=== PATIENT | male | born 1995 | race Caucasian/White ===

== ENCOUNTER 2018-11-06 00:15 | Observation (INO) ==
[2018-11-06] MEDS ORDERED: LR 1,000 ML IV ONE ×3 (00:51→00:52)
[2018-11-06] MEDS ORDERED: LEVAQUIN 500 MG/D5W 500 MG/100 ML IVPB IV ONE (00:54)
[2018-11-06] MEDS ORDERED: TYLENOL PO ONE (01:26)
[2018-11-06 01:36] LABS: BASO# 0.02 X1000 (0.0-0.2); BASO% 0.2 % (0.0-0.8); EOS# 0.07 X1000 (0.0-0.7); EOS% 0.6 % (0.0-10.0); HEMATOCRIT 42.7 % (42.0-52.0); HEMOGLOBIN 14.1 g/dL (14.0-18.0); IMM GRAN# 0.02 X1000 (0.0-0.04); IMM GRAN% 0.2 % (0.0-0.5); LYMPH# 1.43 X1000 (1.2-3.4); LYMPH% 12.1 % (20.5-51.1); MCV 84.7 FL (81-99); MONO# 1.01 X1000 (0.11-0.59); MONO% 8.5 % (1.7-9.3); NEUT# 9.29 X1000 (1.4-6.5); NEUT% 78.4 % (42.2-75.2); PLT 285 X1000 (130-400); RBC 5.04 XMIL (4.7-6.1); RDW 13.6 % (11.5-14.5); WBC 11.84 X1000 (4.8-10.8)
[2018-11-06 01:39] LABS: AGAP 16; ALB/GLOB RATIO 1.5; ALBUMIN 4.7 g/dL (3.5-5.0); ALKALINE PHOSPHATASE 88 U/L (32-122); BUN 13 mg/dL (8-22); CHLORIDE 102 mmol/L (98-107); CK PROFILE 105 U/L (24-204); COSMO 282; CREATININE 0.7 mg/dL (0.7-1.2); ESTIMATED GFR > 60; GLUCOSE 115 mg/dL (70-104); GOT 14 U/L (10-34); GPT 17 U/L (10-44); POTASSIUM 3.8 mmol/L (3.5-5.1); SODIUM 141 mmol/L (136-145); TCO2 23 mmol/L (25-35); TOTAL BILIRUBIN 0.34 mg/dL (0.20-1.00); TOTAL PROTEIN 7.8 g/dL (6.3-8.3)
[2018-11-06 01:55] LABS: URINE SOURCE CLEAN CATCH
[2018-11-06 01:59] LABS: BILIRUBIN URINE NEGATIVE (NEGATIVE); BLOOD URINE NEGATIVE (NEGATIVE); COLOR YELLOW; GLUCOSE URINE NEGATIVE (NEGATIVE); KETONE URINE NEGATIVE (NEGATIVE); LEUKOCYTES URINE NEGATIVE (NEGATIVE); NITRITE URINE NEGATIVE (NEGATIVE); PH URINE 6.5; PROTEIN URINE TRACE mg/dL (NEGATIVE); SP GRAVITY URINE 1.024; TURBIDITY URINE CLEAR (CLEAR); UROBILINOGEN URINE NORMAL (NORMAL)
[2018-11-06 02:00] LABS: UR EPITHELIAL CELLS <10 /HPF (<10); URINE BACTERIA NEGATIVE /HPF; URINE RBC <10 /HPF (<10); URINE WBC <10 /HPF (<10)
[2018-11-06 02:02] LABS: INR 1.09
[2018-11-06 02:03] LABS: PTT 35.2 Seconds (22.3-41.8)
[2018-11-06] MEDS ORDERED: ZOFRAN IV PRN (07:20)
[2018-11-06] MEDS ORDERED: TYLENOL PO PRN (07:20)
[2018-11-06] MEDS ORDERED: LEVAQUIN 500 MG/D5W 500 MG/100 ML IVPB IV SCH (07:20)
--- NOTE | 2018-11-06 07:29 | HISTORY AND PHYSICAL ---
PRIMARY CARE PHYSICIAN: None. CHIEF COMPLAINT: Fever. HISTORY OF PRESENTING ILLNESS: A 23-year-old male without any significant past medical history who had presented to the emergency department complaining of fever and not feeling well. The patient states that it has been going on for the past several days. He apparently was in the ER earlier in the morning and apparently had a CAT scan which did show possible atypical infectious process and was sent home. However, he states that he did not feel well and returned back to the emergency department. He was evaluated in the ED. He continued to have fever and it was thought that possibly he had pneumonia. Subsequently, he will need admission for further management. At the time of my examination, he denied any headache, visual changes, nausea, vomiting, diarrhea, hemoptysis, melena, chest pain, or any weight changes but complained of a fever and not feeling well. PAST MEDICAL HISTORY: None. PAST SURGICAL HISTORY: None. ALLERGIES: Omnicef. CURRENT MEDICATIONS: None. SOCIAL HISTORY: No history of smoking, alcohol, or illicit drug use. FAMILY HISTORY: No history of coronary artery disease. REVIEW OF SYSTEMS: Fourteen point review of systems as listed as in the HPI. Other systems negative. PHYSICAL EXAMINATION: GENERAL: Cooperative, friendly male. He is resting more comfortably now. VITAL SIGNS: Temperature of 102.9 degrees, pulse 142, respirations 18, blood pressure 121/68. HEENT: Atraumatic, normocephalic. Extraocular movements intact. PERRLA. NECK: No masses. CHEST: Right lower lobe rales. CARDIOVASCULAR: Regular rate and rhythm. ABDOMEN: Soft. Positive bowel sounds. EXTREMITIES: No edema. NEUROLOGIC: He is awake, alert, oriented x3. : No bladder distention. SKIN: Warm. LABORATORIES AND STUDIES: WBCs 11.84, hemoglobin 14.1, hematocrit 42.7, platelets are 285,000. Sodium 141, potassium 3.8, chloride 102, CO2 is 23, BUN is 13, creatinine is 0.7, glucose is 115. The patient apparently had a CT of the abdomen and pelvis earlier which did show some large nodules, possibly representing an atypical infectious process. ASSESSMENT: This is a 23-year-old male without any significant past medical history who presented to the emergency department with a several day history of having fever. He was evaluated in the emergency department, suspected possibly to have pneumonia. Subsequently, he will need admission for further management. 1. Suspected atypical pneumonia. 2. Fever. PLAN: 1. We will admit the patient to the medical floor with telemetry. 2. We will check blood cultures. Start patient on IV antibiotics. 3. Continue with other supportive care and analgesics. 4. Continue with gentle hydration. 5. We will continue to follow and reassess, and make further recommendations based on patient's clinical course. cc: Catracho Maloney MD
[2018-11-06] MEDS ORDERED: AZACTAM 1 GM in NS 50 ML IV SCH (07:30)
[2018-11-06] MEDS: NS 1,000 ML IV SCH ×2 (08:05→16:05)
--- NOTE | 2018-11-06 08:54 | Diag Imaging Result Doc PS360 ---
EXAM: CHEST-PORTABLE INDICATION: dyspnea TECHNIQUE: One view COMPARISON: 12/10/2017 FINDINGS: There is a vague nodular opacity in the right midlung zone. This is probably a part of the same process that was seen on a recent CT abdomen and pelvis at the lung bases. The smaller basilar nodules seen on CT cannot be identified on this AP plain radiograph. There is no discrete pleural fluid collection or pneumothorax. The cardiomediastinal silhouette and central vasculature are grossly unremarkable. IMPRESSION: Vague nodular density in the right midlung zone. Please see above discussion. Electronically signed by Linus Cunningham 11/06/2018 8:52 AM
--- NOTE | 2018-11-06 14:28 | INFECTIOUS DISEASE CONSULT REP ---
DATE: 11/06/2018 CONCLUSION: The patient is admitted to the hospital with a bilateral nodular pneumonia, the exact etiology of which is uncertain to me. I think it definitely is an infection rather than a malignancy, either primary or secondary due to metastatic disease. ALLERGIES: The patient is allergic to Omnicef. RECOMMENDATIONS: I agree with treating the patient with Levaquin. I think the aztreonam can be discontinued. I think, furthermore, if the patient remains afebrile and his cough is subsiding, he could be discharged home on Levaquin and I can follow him in the office. I have ordered antibodies for mycoplasma and chlamydia. DISCUSSION: The patient says approximately 4 days ago, he developed right-sided pleuritic chest pain. He had fever. The patient coughed and produced a very small amount of green-colored sputum which he is not producing at all now. He does not remember being exposed to somebody who was ill. He has not been to the [facility]. Laboratory studies thus far show a CBC with a white count of 11,840, hemoglobin is 14.1, platelet count is 285,000. Creatinine is 0.7. GFR is greater than 60. Liver function studies are normal. Urinalysis shows no white cells or bacteria. The patient's CT scan of the chest shows bilateral nodular infiltrates. Blood cultures are pending. Swab for influenza was negative. PAST MEDICAL HISTORY/REVIEW OF SYSTEMS: Eyes and Ears: He does not have any problem hearing or seeing. Neck: No pain with movement. Respiratory: See present illness. Cardiac: No chest pain or palpitations. GI: No nausea, vomiting, or diarrhea. : No dysuria or flank pain. Bones, Joints, Muscles: No swollen joints or myalgias. Endocrine: Patient does not have diabetes or thyroid disease. Integument: No rash. PREVIOUS HOSPITALIZATIONS AND OPERATIONS: None. MEDICAL DISEASES: Obesity. Negative for diabetes. INFECTIOUS DISEASE HISTORY: Positive for sinusitis and bronchitis. FAMILY HISTORY: Positive for diabetes mellitus and cancer. SOCIAL HISTORY: [place] He rarely drinks alcoholic beverages. He is allergic to Omnicef. He works at the [employer]. He has a dog as a pet. He lives with his grandmother. MEDICATIONS: The patient does not have any normal home medications. PHYSICAL EXAMINATION: Vital Signs: Temperature is 98.6 degrees, pulse 117, respirations 16, blood pressure 154/89. The patient weighs 271 pounds. General: This is an obese, young male. He is in no acute distress. Head, Eyes, Ears, Nose, and Throat: He can hear my spoken words and see near objects. He does not have any white patches on his tongue. There is no drainage from the nose or ears. Sinuses are not tender. Neck: No pain with movement. Lungs: Clear to auscultation. Cardiovascular: Regular heart rate. Abdomen: Soft and nontender. Neurologic: The patient is awake. He can move his extremities. There is no tremor. Integument: No rash. Lymph Nodes: No lymphadenopathy. Thank you for the consult. cc: Mukesh Myrick MD
--- NOTE | 2018-11-06 20:14 | Diag Imaging Result Doc PS360 ---
EXAM: CT THORAX W/O CONTRAST INDICATION: pneumonia/lymphadenopathy TECHNIQUE: This exam was performed using automated exposure control, adjustment of mA or kV according to patient size, and/or use of iterative reconstruction technique. COMPARISON: No prior dedicated chest CT is available for comparison. FINDINGS: There are innumerable nodules seen throughout both lungs that are similar to the ones seen at the lung bases on a CT of the abdomen and pelvis performed yesterday. The largest nodules were out of the [id number] on yesterday's study and are at the superior aspect of the right lower lobe and the anterior segment of the right upper lobe measuring up to 3 cm axially. Since yesterday's study, several of the nodules at the lung bases have coalesced into small but dense consolidations, more prominent on the right. This rapid coalescing of these nodules favors an atypical infectious process or inflammatory process such as sarcoidosis. Nonetheless, follow-up after treatment should be considered to assure resolution. There is no pleural fluid collection and there is no pneumothorax. There is no cardiomegaly. There is mediastinal and hilar lymphadenopathy with multiple mild to moderately enlarged nodes that are nonspecific but probably related to the same process that is causing the nodules. The bony structures of the thorax are unremarkable. IMPRESSION: 1.Innumerable nodules of varying sizes scattered throughout both lungs as described above with coalescence of several of the nodules seen at the lung bases on yesterday's abdominal CT. Please see above discussion. 2.Mediastinal and hilar lymphadenopathy. Electronically signed by Linus Cunningham 11/06/2018 8:12 PM
[2018-11-07] MEDS: NS 1,000 ML IV SCH (01:38)
[2018-11-07] MEDS ORDERED: LEVAQUIN 500 MG/D5W 500 MG/100 ML IVPB IV SCH (01:45)
[2018-11-07] MEDS ORDERED: OFIRMEV 1000 MG/ISOTONIC SOLN 1,000 MG/100 ML BOTTLE IV ONE (02:11)
[2018-11-07] MEDS: ROBITUSSIN-AC PO PRN ×2 (02:29→08:48)
[2018-11-07 07:29] LABS: BASO# 0.03 X1000 (0.0-0.2); BASO% 0.3 % (0.0-0.8); EOS# 0.11 X1000 (0.0-0.7); HEMATOCRIT 39.8 % (42.0-52.0); HEMOGLOBIN 13.2 g/dL (14.0-18.0); IMM GRAN# 0.05 X1000 (0.0-0.04); IMM GRAN% 0.5 % (0.0-0.5); LYMPH# 1.63 X1000 (1.2-3.4); LYMPH% 14.9 % (20.5-51.1); MCH 28.6 PG (27-31); MCHC 33.2 g/dL (33-37); MCV 86.1 FL (81-99); MONO# 1.15 X1000 (0.11-0.59); MONO% 10.5 % (1.7-9.3); MPV 9.5 FL (7.4-10.4); NEUT# 7.96 X1000 (1.4-6.5); NEUT% 72.8 % (42.2-75.2); PLT 249 X1000 (130-400); RBC 4.62 XMIL (4.7-6.1); RDW 13.6 % (11.5-14.5); WBC 10.93 X1000 (4.8-10.8)
[2018-11-07 07:39] LABS: AGAP 11; BUN 7 mg/dL (8-22); CALCIUM 8.6 mg/dL (8.8-10.2); CHLORIDE 104 mmol/L (98-107); COSMO 274; CREATININE 0.7 mg/dL (0.7-1.2); ESTIMATED GFR > 60; GLUCOSE 98 mg/dL (70-104); POTASSIUM 4.2 mmol/L (3.5-5.1); SODIUM 138 mmol/L (136-145); TCO2 23 mmol/L (25-35)
[2018-11-07] MEDS ORDERED: TYLENOL PO PRN (08:30)
--- NOTE | 2018-11-07 08:42 | HEMO/ONC CONSULTATION ---
DATE: 11/07/2018 CHIEF COMPLAINT: We are being consulted for further evaluation and management of lymphadenopathy and pulmonary nodules. HISTORY OF PRESENT ILLNESS: Mr. Tiana Castorena is a 23-year-old male with any significant past medical history that came to the emergency department complaining of fever, not feeling well over the past few days. The patient was in the emergency department at one point in time and still had complaints and was sent home and came back once again to the emergency department complaining that he is feeling worse. He was admitted at that time for possible pneumonia. The patient denies any headaches, visual changes, nausea, vomiting, diarrhea, chest pain. PAST MEDICAL HISTORY: None.. PAST SURGICAL HISTORY: None. SOCIAL HISTORY: Denies any tobacco, alcohol or illicit drug use. FAMILY HISTORY: Noncontributory. ALLERGIES: Omnicef. HOME MEDICATIONS: None. REVIEW OF SYSTEMS: Negative other than in the HPI. PHYSICAL EXAM: Vital Signs: Temperature 99.9 degrees, heart rate 113, respiratory rate 18, blood pressure 129/74, saturation 98% on room air. General: Patient is awake, lying in bed, no acute distress noted. HEENT: Anicteric. Mucous membranes moist. Neck: Supple. Trachea midline. No JVD. No palpable lymphadenopathy. Chest: Bilateral breath sounds diminished bilaterally. Cardiovascular: S1, S2. Regular rate and rhythm. Abdomen: Soft, nontender. Bowel sounds present in all quadrants. No hepatosplenomegaly noted. Skin: Warm, dry and intact. No petechiae. No clubbing or cyanosis. Neurologic: Alert and oriented x3. No focal deficits noted. LABORATORY DATA: White count 10.93, hemoglobin 13.2, hematocrit 39.8, platelets are 249. Potassium 4.2, BUN 7, creatinine 0.7. Radiology results CT chest shows an number nodules of varying sizes scattered in both lungs. Also has mediastinal lymphadenopathy. ASSESSMENT/PLAN: 1. Lung nodules: The lab work has been ordered. Further evaluation pending. We will make further recommendations based on further evaluation. 2. Pneumonia: Continue recommendations per pulmonology and infectious Disease. 3. Fever: Continue antibiotics as ordered. Plan of care discussed with Dr. Cartwright. Dictated by MARY ELLEN Lazo for Kamron Cartwright MD Patient seen and examined. Admitted with fevers, bilateral lung nodules and mediastinal lymphadenopathy. Dr. Mace and Ramez are consulted. Infectious/inflammatory disorder suspected. Proceed with current management. If malignancy is noted, we will take over management. I will continue to follow with you. Thank you Kamron Cartwright M.D. cc: MARY ELLEN Lazo MD [facility]
[2018-11-07] MEDS ORDERED: MOTRIN PO ONE (11:04)
[2018-11-07] MEDS ORDERED: MOTRIN PO PRN (12:07)
[2018-11-07] MEDS ORDERED: NS 1,000 ML IV SCH (12:15)
[2018-11-07] MEDS ORDERED: LOVENOX SUBQ SCH (12:15)
--- NOTE | 2018-11-07 12:44 | PROGRESS NOTE ---
DATE: 11/07/2018 SUBJECTIVE: The patient has been febrile all morning. He states that he feels a little bit better despite having a fever. OBJECTIVE: Vital Signs: T-max 100.3 degrees, blood pressure 129/74, heart rate 113, respirations 19 and O2 saturations 97% on room air. General: This is a young male lying in bed in no acute distress. HEENT: Head normocephalic and atraumatic. Heart: S1, S2 normal. Tachycardic. Lungs: Equal air entry bilaterally. No wheezing. No rales. Abdomen: Positive bowel sounds. Soft, nontender, and nondistended. Extremities: No edema. No cyanosis. Neurologic: The patient is alert and oriented x4. No focal neurologic deficits noted. LABORATORY: White blood cell count 10, hemoglobin 13, hematocrit 39, and platelets 249,000. Sodium 138, potassium 4.2, chloride 104, CO2 23, BUN 7, creatinine 0.7, glucose 98, and calcium 8.6. ASSESSMENT AND PLAN: 1. Multiple pulmonary nodules with hilar and mediastinal lymphadenopathy. The workup is in progress for possible infectious etiology. Both ID and Pulmonary are following. The patient is currently on antibiotic therapy. Oncology has also been consulted. 2. Pneumonia. Continue with IV antibiotic therapy as directed by Dr. Myrick. 3. Deep vein thrombosis prophylaxis. We will start the patient on Lovenox. cc: Nenita Lopez MD
[2018-11-07 14:00] VITALS: BP 130/62
--- NOTE | 2018-11-07 18:53 | PULMONOLOGY CONSULTATION ---
DATE: 11/07/2018 REASON FOR CONSULTATION: Pulmonary nodules and lymphadenopathy. HISTORY OF PRESENT ILLNESS: Mr. Montiel is a 23-year-old white male with no active medical problems who reports he was feeling well until 11/05/2014 when he developed pain in his right side, which was worse with bending and twisting. In hind site, he did report a cough which preceded this for 2 to 3 days. He presented to the emergency room after an Urgent Care told him he had a positive Ryan sign and he had his gallbladder evaluated. CT scan of the abdomen and pelvis was performed which revealed new bibasilar nodules, which were not present on prior CT scan of the abdomen 12/11/2017 which was performed for abdominal pain, nausea and vomiting. The patient was discharged with outpatient follow-up arranged. The patient returned to the emergency room the following day with increased cough, increased pleuritic pain, and fevers. CT scan of the thorax was ordered, which reveals multiple bilateral nodules, most of which are not discrete but have an inflammatory process also present. The nodules in the lung bases have now coalesced into areas of consolidation. The patient was admitted to the hospital, and blood cultures were obtained. Influenza screen was negative. Pulmonary, Infectious Disease and Oncology have been consulted. 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 He reports occasionally a bird will roost in the warehouse but not routinely. 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 He does report they have pallets that frequently come in and have mold on them. He denies hunting. He denies recent landscaping or movement of dirt. He denies recent travel. His grandmother has a dog. The dog does urinate and defecate in the house that he is living in. There is no known mold damage within the house in which he lives. He does not nelson. He is not aware of being exposed to a sick contact. He does report some pruritus, but this has resolved. He denies groin tenderness or testicular nodules or masses. His fever has been as high as 102.9 degrees, but his temperature curve appears to be declining. PAST MEDICAL HISTORY/PROBLEM LIST: Prior episode of pleurisy by his report. No prior surgeries. No chronic medications. SOCIAL HISTORY: The patient has vaped in the past. Occasional alcohol use. No active tobacco use. FAMILY HISTORY: Noncontributory to current presentation. REVIEW OF SYSTEMS: As noted in the HPI. PHYSICAL EXAMINATION: General: Reveals a healthy-appearing obese white male resting comfortably and in no distress. Vital Signs: BP 130/62, heart rate 110, respiratory rate 19, oxygen saturation 97%, temperature 99.4 degrees. HEENT: Pupils are equal and reactive. No conjunctivitis noted. Nasal passages appear clear. Oropharynx appears clear without lesions. Neck: Supple. Chest: Reveals crackles in both lung bases. Cardiac Exam: S1, S2 increased rate. Abdomen: Obese and soft. Extremities: Without cyanosis or edema. Skin: No definite rashes identified. LABORATORIES: White blood count 10.3, hemoglobin 13.2, platelet count 249,000, sodium 138, potassium 4.2, chloride 104, bicarbonate 23, BUN 7, creatinine 0.7. C-reactive protein is elevated at 90.9. IMPRESSION: Interesting 23-year-old white male who was well a week ago and has subsequently developed pleurisy, fevers, cough with multiple nodules, which have coalesced into the larger areas of nodules/consolidation over a short time frame. The presentation is most consistent with an infectious process. Malignancy would be unlikely to progress this rapidly over 24 hours. Malignancy in a 23-year-old would also be unusual to have metastatic disease and if he did, then a testicular cancer would be most likely. Overt fevers would be less likely with a malignancy. The differential is broad at this juncture and includes community-acquired pneumonia with an atypical presentation, mycoplasma, chlamydial pneumonia or a fungal process such as histoplasmosis. Sarcoidosis also remains in the differential as outlined by the radiologist, but I have not seen a rapid consolidation of nodules over a 24-hour period with sarcoid, and I think that that would be less likely. RECOMMENDATIONS: 1. Agree with current antibiotic regimen. 2. We will add fungal serology and histoplasmosis antigen to his current regimen. 3. I agree with Dr. Myrick. The patient is a candidate for discharge given his clinical improvement, and he will be followed up as an outpatient in Pulmonary and Infectious Disease Clinic. If he does not have clinical improvement, then a CT-guided biopsy or bronchoscopy will be pursued. cc: Haider Mace MD
--- NOTE | 2018-11-08 09:58 | INFECTIOUS DISEASE PROGRESS NO ---
DATE: 11/07/2018 PRESENT ILLNESS: The patient has a bilateral nodular pneumonia. I think this is an infection and not a malignancy. MEDICATION: The patient is receiving Levaquin. PHYSICAL EXAMINATION: Vital Signs: Temperature is 99.4 degrees, pulse 110, respirations 19, blood pressure 130/62. Generally: An obese, young male. He appears to be not quite his normal self. He says he is feeling better. He is not coughing much, but he still feels a little weak. Luckily he has not had any high fever spike. This is an obese, young male, as mentioned above. He looks better than he did yesterday. He still though looks a little sick. He is getting his strength back. He is not having any trouble breathing, and he has not been coughing much. Head, eyes, ears, nose, and throat: He can hear my spoken words and see near objects. There were no white patches on his tongue. Neck: No pain with movement. Lungs: Clear to auscultation. Cardiovascular: Heart rate is regular. Abdomen: Soft and nontender. Neurologic: The patient is alert. He can move his extremities. There is no tremor. DIAGNOSTIC STUDIES: There is no new radiographic studies. Swab for influenza is negative. Creatinine is 0.7. CBC shows a white count of 10,930, hemoglobin 13.2, and platelet count 249,000. ASSESSMENT AND PLAN: The patient has what I think is a pulmonary infection. Our plan is to send him home on Levaquin 750 mg daily. I have requested that he come to my office in 1 week, at which time he will be examined, and we will get a noncontrasted CT scan of the chest. The patient has a number of tests that are pending here is a list of these: Blood cultures; they have been drawn and so far they are negative. MIRELA with reflex. Angiotensin converting enzyme. Blastomyces antibody. CBC. Chlamydia antibody. Coccidioides antibody. Cryptococcal antigen. Histoplasma antibody. Histoplasma antigen. Mycoplasma antibody. Procalcitonin. A sputum culture and the patient is not coughing up sputum. COMORBIDITY: He rarely drinks alcoholic beverages. He does not smoke cigarettes or abuse drugs. cc: Mukesh Myrick MD MTDD
[2018-11-08 13:04] LABS: MYCOPLASMA PNEUMONIAE AB SEE COMMENTS
[2018-11-09 12:32] LABS: BLASTOMYCES AB BY EIA SEE COMMENTS; COCCIDIOIDES AB SCREEN SERUM SEE COMMENTS
--- NOTE | 2018-11-10 21:46 | DISCHARGE SUMMARY ---
ADMISSION DATE: 11/06/2018 DISCHARGE DATE: 11/07/2018 FINAL DISCHARGE DIAGNOSES: Multiple pulmonary nodules with hilar and mediastinal lymphadenopathy. CONSULTATIONS: 1. Infectious Disease consultation with Dr. Myrick. 2. Pulmonary consultation with Dr. Mace. 3. Hematology consultation with Dr. Cartwright. DIAGNOSTIC DATA: 1. Chest CT which revealed multiple pulmonary nodules of varying sizes; mediastinal and hilar lymphadenopathy. 2. CT of the abdomen and pelvis which revealed mild lymphadenopathy; mildly prominent spleen. HOSPITAL COURSE: Mr. Montiel is a 23-year-old male who presented to the ER with persistent fevers and shortness of breath. On admission a CT of the chest, abdomen, and pelvis was done that revealed multiple pulmonary nodules, as well as mediastinal and hilar lymphadenopathy. ID, Pulmonary Medicine and Hematology were all consulted for further feedback. Multiple serologies were sent due to the atypical nature of the findings on the CT scan, and the patient was treated with IV antibiotic therapy. The patient appeared to have response to the antibiotics at the time of this dictation. The patient's serologies were not back; however, after being seen by all 3 subspecialists, the patient was cleared for discharge home with instructions to follow up with the tax commissioner and infectious disease specialist for the results of the serologies. The patient was sent home with a prescription for Levaquin. DISCHARGE MEDICATIONS: 1. Levaquin 750 mg p.o. daily. 2. Robitussin DM 10 mL oral every 4 hours p.r.n. for cough. DISCHARGE DIET: Regular diet. ACTIVITY: As tolerated. FOLLOWUP INSTRUCTIONS: The patient will need to follow up with Dr. Mace as scheduled by his clinic. The patient will also need to follow up with Dr. Mukesh Myrick as scheduled to receive the results of the multiple serologies that were done during this hospitalization. cc: Nenita Lopez MD
--- NOTE | 2018-11-12 04:07 | PROVIDER DOCUMENTATION ---
This chart was entered by Gaviota Cunningham Scribe, acting as scribe for Frank Aleman DO. HPI-Fever - General Chief Complaint: Possible Sepsis-D Stated Complaint: RIGHT SIDE ABD PAIN/FEVER Time Seen by Provider: 11/06/18 00:33 Allergies/Adverse Reactions: Patient Allergies Allergy/AdvReac Type Severity Reaction Status Date / Time cefdinir [From Omnicef] AdvReac ITCHING Verified 11/06/18 05:38 Home Medications: Home Medication List Medication Instructions Recorded Confirmed Last Taken Type Guaifenesin/Dm [Robitussin-Dm] 10 ml PO Q4H PRN PRN #1 bottle 11/07/18 Unknown Rx Levofloxacin [Levaquin] 750 mg PO DAILY #14 tab 11/07/18 Unknown Rx - History of Present Illness-Fever Nature of Presenting Problem: 23 yom presents to er w/ fever of 102.9, min cough, ruq pain, rt sided back pain, and burning eyes since this this am. pt was seen at [facility] er yesterday am and had ct scan and was d/c and rx percogestic. also yesterday am was seen at urgent care and was told he had + cook's sign and to come to er. pt states symptoms are getting worse and he's scared. pt works in a warehouse. pt denies any sick contacts. Fever Severity/Quality: reports: greater than 102 F (102.9) Onset/Duration: reports: this morning Timing: reports: still present Severity: reports: moderate Context: reports: none Recent Illness?: reports: none Cognitive Baseline: alert, oriented x3 Similar Symptoms Previously?: Yes Recently seen or treated by another doctor?: Yes (urgent care and [facility] 11-05 ) - Glascow Coma Score Best Eye Response ([place]): (4) open spontaneously Best Verbal Response ([place]): (5) oriented Best Motor Response ([place]): (6) obeys commands [place] Total: 15 Review of Systems - Adult - REVIEW OF SYSTEMS - ADULT Constitutional: reports: see HPI, fever (102.9). denies: chills, fatique, night sweats Eyes: reports: see HPI, eye pain (burning). denies: blurred vision, double vision, redness Ears, Nose, Mouth & Throat: reports: no symptoms reported Cardiovascular: reports: no symptoms reported Respiratory: reports: see HPI, cough. denies: dyspnea on exertion, excessive sputum production, hemoptysis Gastrointestinal: reports: no symptoms reported Genitourinary: reports: no symptoms reported Musculoskeletal: reports: see HPI, back pain (rt side) Integumentary: reports: no symptoms reported Neurological: reports: no symptoms reported Psychiatric: reports: no symptoms reported Endocrine: reports: no symptoms reported Hematologic/Lymphatic: reports: no symptoms reported Allergic/Immunologic: reports: no symptoms reported All Other Systems: Reviewed and Negative Past History - Adult - PAST MEDICAL HISTORY-ADULT Review of Records: reports: Old Records Reviewed, Nursing Assessment Review, Medications Reviewed, Social history reviewed & non-contributory. Major Childhood Illnesses: reports: denies history Cardiovascular: reports: denies history Respiratory: reports: denies history Gastrointestinal: reports: ulcer Obstetrical/Gynecological: reports: denies history Genitourinary: reports: denies history Musculoskeletal: reports: denies history Neurological: reports: denies history Psychiatric: reports: other (ADHD) Endocrine/Immune: reports: denies history Other Conditions: reports: denies history - PRIOR SURGERIES/PROCEDURES Surgical/Procedure History: reports: none, reviewed, not pertinent - PRIOR HOSPITALIZATIONS Prior Hospitalizations: reports: for other non-related - IMMUNIZATION STATUS Childhood Immunizations: See Nurse Assessment Flu Vaccine: See Nurse Assessment - FAMILY HISTORY Family History: reviewed, not pertinent - SOCIAL HISTORY Smoking: other (vapes) Provider spent 3-5 mins advising pt. on dangers of tobacco.: Discussed manners to quit use, and f/u contacts for add'l counseling. Substance Use: alcohol Alcohol Use Frequency: occasionally Physical Exam-General - PHYSICAL EXAM-ADULT Initial Vital Signs Reviewed: Yes - CONSTITUTIONAL General Appearance: alert, moderate distress. negative: slow to respond, obtunded, combative - EYES Eyes: PERRL/EOMI - HEAD, EARS, NOSE, MOUTH & THROAT HENMT: normocephalic/atraumatic, moist mucous membranes, normal ENT inspection - NECK Neck: non-tender, full range of motion, supple, normal inspection - RESPIRATORY Respiratory: chest non-tender, lungs clear, normal breath sounds - CARDIOVASCULAR Cardiovascular: normal peripheral pulses, tachycardia. negative: regular rate, rhythm, JVD, bradycardia, extra beats - GASTROINTESTINAL (ABDOMEN) Abdominal Exam: normal bowel sounds, soft, tenderness (ruq). negative: non tender, guarding, rigid - LYMPHATIC Lymphatic: no adenopathy - MUSCULOSKELETAL Back Exam: normal inspection, no CVA tenderness, no vertebral tenderness Extremity: normal range of motion, non-tender, normal inspection Peripheral Pulses: radial (R): 2+, radial (L): 2+ - SKIN Integumentary: normal color, normal turgor - NEUROLOGIC Neurologic: granulator II-XII nml as tested, grossly normal, no motor/sensory deficits - PSYCHIATRIC Psych/Mental Status: normal mood/affect, normal thought content, normal thought process, oriented x 3 Progress - PLAN OF CARE/RESULTS Result Diagrams: 11/07/18 06:50 11/07/18 06:50 - REASSESSMENT Reassessment #1 Time Reassessed: 02:51 Status: improving Departure - Departure Date of Disposition Decision: 11/06/18 Time of Disposition Decision: 07:28 DIAGNOSIS: Fever Disposition: ADMITTED INPATIENT 09 Certified Medical Emergency: Emergent Condition: Good - Critical Care Note This patient required my direct & personal management of CC.: Yes Total Time (mins): 38 Critical Care Statement: This patient required my direct personal management to treat or rule out processes, the absence of which, could potentiallly result in sudden, clinically significant life or limb threatening deterioration. Attestation - Physician/ [place] Attestation Patient care was provided by Advanced Practice Provider:: No The physician spent face to face time with patient:: Yes Advanced Practice Provider documentation review:: Supervising physician onsite and consulted in the evaluation and care of this patient. The physician did have a face to face encounter with the patient. This chart was documented by the indicated scribe, (Gaviota Cunningham Scribe) and accurately reflects the services I performed and decisions made by me, Frank Aleman DO, as attested by the provider's signature.
== END 2018-11-07 18:15 | disposition home or self-care (01) ==
LOC: SUATTDRO → ED 00:15 → 3N 00:15 → SUATTDRO 00:16
PROVIDERS: ATTEND Internal Medicine
CPT/HCPCS: 71010; 71045; 71250; 80048; 80053; 81001; 82164; 82378; 82550; 82784; 83605; 83615; 84145; 84484; 85025; 85610; 85651; 85730; 86038; 86039; 86140; 86403; 86612; 86631; 86632; 86635; 86698; 86738; 87040; 87070; 87205; 87275; 87276; 87804; 94761; 96365; 99285; A9270; J0131; J1650; J1956; J7030; J7120; S0073